=== PATIENT | female | born 1955 | race Caucasian/White ===

== ENCOUNTER 2016-10-28 07:30 | Emergency (ER) | payer BC, OTHER ==
[2016-10-28 07:54] VITALS: BP 117/65
--- NOTE | 2016-10-28 08:32 | UC ---
FLU HPI - HPI Summary HPI Summary: 6 DAYS OF NON PRODUCTIVE HARSH BARKING COUGH. FEELS SHE IS GETTING WORSE. HAS BODY ACHES AND FATIGUE. DENIES ANY SOB. FEVER STARTED YESTERDAY TMAX [address]. NO ST OR EAR PAIN. - History of Current Complaint Chief Complaint: UCRespiratory Stated Complaint: COUGH Time Seen by Provider: 10/28/16 08:14 Hx Obtained From: Patient Onset/Duration: Gradual Onset, Lasting Days, Still Present Severity Currently: Moderate Severity Initially: Moderate Pain Intensity: 2 Pain Scale Used: 0-10 Numeric Associated Signs & Symptoms: Positive: Fever, Myalgia, Cough, Nasal Congestion, Vomiting. Negative: Sore Throat, Headache, Diarrhea - Allergy/Home Medications Allergies/Adverse Reactions: Allergies Allergy/AdvReac Type Severity Reaction Status Date / Time No Known Allergies Allergy Verified 02/02/15 14:24 Home Medications: Home Medications Albuterol Sulfate [Proventil Hfa] 108 mcg IN 10/28/16 [History] PMH/Surg Hx/FS Hx/Imm Hx Endocrine History Of: Denies: Diabetes, Thyroid Disease Cardiovascular History Of: Denies: Cardiac Disorders, Hypertension Respiratory History Of: Reports: Asthma Denies: COPD GI/ History Of: Denies: Ulcer Cancer History Of: Denies: Breast Cancer - Surgical History Surgical History: Yes Surgery Procedure, Year, and Place: T&A as a child - Family History Known Family History: Negative: Hypertension, Diabetes - Social History Alcohol Use: Rare Substance Use Type: None Smoking Status (MU): Never Smoked Tobacco Review of Systems Constitutional: Fever, Fatigue ENT: Nasal Discharge Respiratory: Cough Cardiovascular: Negative Gastrointestinal: Vomiting - POST TUSSIVE All Other Systems Reviewed And Are Negative: Yes Physical Exam Triage Information Reviewed: Yes Appearance: Well-Appearing, No Pain Distress, Well-Nourished Vital Signs: Initial Vital Signs Temp 100.9 F 10/28/16 07:48 Pulse 96 10/28/16 07:48 Resp 18 10/28/16 07:48 BP 117/65 10/28/16 07:48 Pulse Ox 96 10/28/16 07:48 Vital Signs Reviewed: Yes Eyes: Positive: Conjunctiva Clear ENT: Positive: Hearing grossly normal, Pharynx normal, TMs normal Neck: Positive: Supple, Nontender, No Lymphadenopathy Respiratory Exam: Normal Cardiovascular Exam: Normal Abdomen Description: Positive: Soft Musculoskeletal: Positive: No Edema Neurological: Positive: Alert Psychological: Positive: Age Appropriate Behavior Skin: Negative: rashes Diagnostics - Laboratory Diagnostic Studies Completed/Ordered: RAPID FLU - POSITIVE FLU A Flu Course/Dx - Differential Dx/Diagnosis Provider Diagnoses: INFLUENZA A Discharge - Discharge Plan Condition: Stable Disposition: HOME Prescriptions: Oseltamivir CAP* [Tamiflu CAP*] 75 mg PO BID #10 cap Promethazine W/Codeine [Promethazine/Codeine] 5 ml PO Q4HR PRN #150 ml MDD 30 ML PRN Reason: Cough predniSONE TAB* [Deltasone TAB*] 50 mg PO DAILY #3 tab Patient Education Materials: Influenza (ED) Forms: *Work Release Referrals: Dave Johnson MD [Primary Care Provider] - If Needed
== END 2016-10-28 09:10 | disposition home or self-care (01) ==
LOC: UCEAST 07:30
DX: J10.1 Influenza due to other identified influenza virus with other respiratory manifestations (principal)
CPT/HCPCS: 87502; 99212; G0463